=== PATIENT | female | born 1930 | race Caucasian/White ===

== ENCOUNTER 2020-08-13 13:38 | Inpatient (IN) ==
[2020-08-13] MEDS: Cyanocobalamin (B-12) 1,000 MCG/ML VIAL IM SCH ×2 (21:57→22:07)
[2020-08-13] MEDS: hydrALAZINE 25 MG TABLET PO SCH (21:57)
[2020-08-13] MEDS: cloNIDine HCL 0.1 MG TABLET PO SCH (21:58)
[2020-08-13] MEDS: Cholecalciferol (D-3) 1,000 UNIT (25MCG) TABLET PO SCH (21:58)
[2020-08-13] MEDS: Melatonin 3 MG TABLET PO PRN (21:59)
[2020-08-13] MEDS: paricalcitoL 1 MCG CAPSULE PO SCH (22:06)
[2020-08-14] MEDS: Cyanocobalamin (B-12) 1,000 MCG/ML VIAL IM SCH ×2 (00:30→09:37)
[2020-08-14 07:01] LABS: Calcium 9.5 mg/dL (8.6-10.3); Potassium 3.8 mEq/L (3.5-5.1)
[2020-08-14] MEDS ORDERED: amLODIPine 5 MG TABLET PO SCH (09:00)
[2020-08-14] MEDS ORDERED: Denosumab 60 MG/ML SYRINGE SQ SCH (09:00)
[2020-08-14] MEDS: paricalcitoL 1 MCG CAPSULE PO SCH ×2 (09:35→20:59)
[2020-08-14] MEDS: predniSONE 20 MG TABLET PO SCH (09:35)
[2020-08-14] MEDS: hydrALAZINE 25 MG TABLET PO SCH ×3 (09:35→20:59)
[2020-08-14] MEDS: Cholecalciferol (D-3) 1,000 UNIT (25MCG) TABLET PO SCH ×2 (09:35→21:00)
[2020-08-14] MEDS: Pyridoxine (B-6) 50 MG TABLET PO SCH (09:36)
[2020-08-14] MEDS: Folic Acid 1 MG TABLET PO SCH (09:36)
[2020-08-14] MEDS: cloNIDine HCL 0.1 MG TABLET PO SCH (09:36)
[2020-08-14] MEDS ORDERED: Sennosides/Docusate Sodium TABLET PO PRN (15:55)
[2020-08-14] MEDS ORDERED: amLODIPine 5 MG TABLET PO ONE (16:15)
[2020-08-14] MEDS: *HR* Heparin 5,000 UNIT/ML VIAL SQ SCH (16:59)
[2020-08-14] MEDS: Melatonin 3 MG TABLET PO PRN (21:00)
[2020-08-15] MEDS: hydrALAZINE 25 MG TABLET PO SCH ×3 (09:20→20:35)
[2020-08-15] MEDS: predniSONE 20 MG TABLET PO SCH (09:21)
[2020-08-15] MEDS: amLODIPine 5 MG TABLET PO SCH (09:21)
[2020-08-15] MEDS: paricalcitoL 1 MCG CAPSULE PO SCH ×2 (09:21→20:36)
[2020-08-15] MEDS: Folic Acid 1 MG TABLET PO SCH (09:22)
[2020-08-15] MEDS: Cholecalciferol (D-3) 1,000 UNIT (25MCG) TABLET PO SCH ×2 (09:22→20:36)
[2020-08-15] MEDS: Pyridoxine (B-6) 50 MG TABLET PO SCH (09:22)
[2020-08-15] MEDS: *HR* Heparin 5,000 UNIT/ML VIAL SQ SCH ×2 (09:23→17:22)
[2020-08-15] MEDS: Melatonin 3 MG TABLET PO PRN (20:37)
[2020-08-16] MEDS: *HR* Heparin 5,000 UNIT/ML VIAL SQ SCH ×2 (05:56→17:28)
[2020-08-16] MEDS: paricalcitoL 1 MCG CAPSULE PO SCH ×2 (09:14→21:30)
[2020-08-16] MEDS: Pyridoxine (B-6) 50 MG TABLET PO SCH (09:14)
[2020-08-16] MEDS: Folic Acid 1 MG TABLET PO SCH (09:15)
[2020-08-16] MEDS: hydrALAZINE 25 MG TABLET PO SCH ×3 (09:15→21:30)
[2020-08-16] MEDS: predniSONE 20 MG TABLET PO SCH (09:15)
[2020-08-16] MEDS: amLODIPine 5 MG TABLET PO SCH (09:15)
[2020-08-16] MEDS: Cholecalciferol (D-3) 1,000 UNIT (25MCG) TABLET PO SCH ×2 (09:15→21:30)
[2020-08-16] MEDS: Melatonin 3 MG TABLET PO PRN (21:30)
[2020-08-17] MEDS ORDERED: *HR* Labetalol 20 MG/4 ML SYRINGE IVP ONE (00:52)
[2020-08-17] MEDS ORDERED: hydrALAZINE 25 MG TABLET PO ONE (01:16)
[2020-08-17] MEDS: *HR* Heparin 5,000 UNIT/ML VIAL SQ SCH ×2 (07:06→18:31)
[2020-08-17 08:04] LABS: Albumin 3.4 g/dL (3.5-5.7); Albumin/Globulin Ratio 0.9 (1.1-2.2); Bilirubin,Total 0.5 mg/dL (0.3-1.0); Potassium 3.7 mEq/L (3.5-5.1); Total Protein 7.4 g/dL (6.4-8.9)
[2020-08-17 08:31] LABS: VBG Ionized Calcium 1.79 mmol/L (1.15-1.35)
[2020-08-17] MEDS: Folic Acid 1 MG TABLET PO SCH (10:05)
[2020-08-17] MEDS: paricalcitoL 1 MCG CAPSULE PO SCH ×2 (10:05→21:44)
[2020-08-17] MEDS: hydrALAZINE 25 MG TABLET PO SCH ×4 (10:05→21:44)
[2020-08-17] MEDS: Cholecalciferol (D-3) 1,000 UNIT (25MCG) TABLET PO SCH ×2 (10:05→21:44)
[2020-08-17] MEDS: amLODIPine 5 MG TABLET PO SCH (10:06)
[2020-08-17] MEDS: predniSONE 20 MG TABLET PO SCH (10:06)
[2020-08-17] MEDS: Pyridoxine (B-6) 50 MG TABLET PO SCH (10:06)
[2020-08-17] MEDS: Isosorbide MONOnitrate (24 HR) 30 MG TAB.ER.24H PO SCH (14:23)
[2020-08-17] MEDS: Ringers Solution, Lactated 1,000 ML IVC SCH (14:24)
[2020-08-17] MEDS: Metoprolol 100 MG TABLET PO SCH (21:45)
[2020-08-18] MEDS: Ringers Solution, Lactated 1,000 ML IVC SCH ×3 (00:08→17:20)
[2020-08-18] MEDS: *HR* Heparin 5,000 UNIT/ML VIAL SQ SCH ×2 (05:33→17:24)
[2020-08-18] MEDS: paricalcitoL 1 MCG CAPSULE PO SCH ×3 (08:40→20:22)
[2020-08-18] MEDS: hydrALAZINE 25 MG TABLET PO SCH ×5 (08:40→20:22)
[2020-08-18] MEDS: predniSONE 20 MG TABLET PO SCH ×2 (08:40→09:22)
[2020-08-18] MEDS: Cholecalciferol (D-3) 1,000 UNIT (25MCG) TABLET PO SCH ×3 (08:40→20:23)
[2020-08-18] MEDS: Isosorbide MONOnitrate (24 HR) 30 MG TAB.ER.24H PO SCH ×2 (08:40→09:21)
[2020-08-18] MEDS: Folic Acid 1 MG TABLET PO SCH ×2 (08:41→09:21)
[2020-08-18] MEDS: Pyridoxine (B-6) 50 MG TABLET PO SCH ×2 (08:41→09:22)
[2020-08-18] MEDS: Metoprolol 100 MG TABLET PO SCH ×3 (08:41→20:22)
[2020-08-18] MEDS: amLODIPine 5 MG TABLET PO SCH ×2 (08:41→09:22)
[2020-08-18] MEDS ORDERED: levoFLOXacin 750 MG TABLET PO ONE (16:19)
[2020-08-18 17:24] LABS: Basophils # 0.1 K/mcL (0.0-0.2); Basophils % 0.6 %; Hematocrit 30.9 % (35.3-44.9); Hemoglobin 9.7 g/dL (11.5-15.4); Immature Granulocytes % 6.3 % (0-4); Lymphocytes % 12.8 %; Mean Corpuscular HGB Conc 31.4 g/dL (31.6-35.5); Mean Corpuscular Hemoglobin 21.6 pg (28.0-33.3); Mean Corpuscular Volume 68.7 fL (83.0-100.0); Mean Platelet Volume 8.4 fL (9.4-12.4); Monocytes # 1.7 K/mcL (0.0-1.3); Monocytes % 7.3 %; Neutrophils # 16.9 K/mcL (1.6-8.9); Nucleated Red Blood Cells 10.7 /100 WBC (0); Platelet Count 390 K/mcL (140-400); Red Cell Distribution Width 22.5 % (11.5-14.5); White Blood Count 23.1 K/mcL (4.3-11.1)
[2020-08-18 17:48] LABS: Albumin 3.2 g/dL (3.5-5.7); Albumin/Globulin Ratio 0.9 (1.1-2.2); Bilirubin,Total 0.6 mg/dL (0.3-1.0); Calcium 11.8 mg/dL (8.6-10.3); Globulin 3.6 g/dL (2.4-3.5); Potassium 4.2 mEq/L (3.5-5.1); Total Protein 6.8 g/dL (6.4-8.9)
[2020-08-18 18:56] LABS: Anisocytosis 1+ (Not Present); Microcytosis Present (Not Present); Platelet Estimate Normal (Normal)
[2020-08-18 18:57] LABS: Polychromasia 1+ (Not Present)
[2020-08-18] MEDS: Melatonin 3 MG TABLET PO PRN (20:22)
[2020-08-19] MEDS: *HR* Heparin 5,000 UNIT/ML VIAL SQ SCH ×2 (05:19→17:44)
[2020-08-19] MEDS: Ringers Solution, Lactated 1,000 ML IVC SCH ×3 (06:10→17:55)
[2020-08-19] MEDS ORDERED: *HR* Labetalol 20 MG/4 ML SYRINGE IVP ONE ×2 (09:05→10:30)
[2020-08-19] MEDS: hydrALAZINE 25 MG TABLET PO SCH (10:37)
[2020-08-19] MEDS: Folic Acid 1 MG TABLET PO SCH (10:37)
[2020-08-19] MEDS: Metoprolol 100 MG TABLET PO SCH (10:38)
[2020-08-19] MEDS: amLODIPine 5 MG TABLET PO SCH (10:38)
[2020-08-19] MEDS: Cholecalciferol (D-3) 1,000 UNIT (25MCG) TABLET PO SCH (10:38)
[2020-08-19] MEDS: Pyridoxine (B-6) 50 MG TABLET PO SCH (10:38)
[2020-08-19] MEDS: Isosorbide MONOnitrate (24 HR) 30 MG TAB.ER.24H PO SCH (10:38)
[2020-08-19] MEDS: paricalcitoL 1 MCG CAPSULE PO SCH (10:39)
[2020-08-19] MEDS: Nitroglycerin 1 INCH/GM PACKET TP SCH (12:15)
[2020-08-19 12:20] LABS: Hemoglobin 10.1 g/dL (11.5-15.4); Mean Corpuscular HGB Conc 30.6 g/dL (31.6-35.5); Mean Corpuscular Hemoglobin 21.2 pg (28.0-33.3); Mean Corpuscular Volume 69.3 fL (83.0-100.0); Mean Platelet Volume 8.8 fL (9.4-12.4); Nucleated Red Blood Cells 10.5 /100 WBC (0); Platelet Count 372 K/mcL (140-400); Red Blood Count 4.76 M/mcL (3.82-4.97); White Blood Count 24.4 K/mcL (4.3-11.1)
[2020-08-19 12:37] LABS: Albumin 3.3 g/dL (3.5-5.7); Albumin/Globulin Ratio 0.9 (1.1-2.2); Bilirubin,Total 0.7 mg/dL (0.3-1.0); Calcium 11.3 mg/dL (8.6-10.3); Globulin 3.5 g/dL (2.4-3.5); Potassium 4.4 mEq/L (3.5-5.1); Total Protein 6.8 g/dL (6.4-8.9)
[2020-08-19 12:53] LABS: Thyroid Stimulating Hormone 5.369 mcIU/mL (0.340-5.600)
[2020-08-19 14:45] LABS: Bilirubin,Urine Negative (Negative); Blood,Urine Negative (Negative); Clarity,Urine Clear (Clear); Color,Urine Yellow (Yellow); Glucose,Urine (UA) Normal (Normal); Ketones,Urine Negative (Negative); Leukocyte Esterase,Urine Negative (Negative); Nitrite,Urine Negative (Negative); PH,Urine 6.5 pH Units (5.0-8.0); Protein,Urine >=300 mg/dL (Neg-Trace); Urobilinogen,Urine Normal (Normal)
[2020-08-19 14:56] LABS: Hyaline Casts,Urine Few per lpf (None Seen); RBC,Urine 0-3 per hpf (0-3); Renal Epithelial Cells,Urine Few per hpf (None-Few); Squamous Epithelial Cell,Urine Few per hpf (None-Few)
[2020-08-19 14:59] LABS: Anisocytosis 1+ (Not Present); Lymphocytes # 1.5 K/mcL (0.6-4.6); Microcytosis Present (Not Present); Monocytes # 2.4 K/mcL (0.0-1.3); Neutrophils # 19.5 K/mcL (1.6-8.9); Platelet Estimate Normal (Normal); Polychromasia 1+ (Not Present)
[2020-08-19] MEDS: levoFLOXacin 500 MG/100 ML 500 MG/100 ML BAG IVPB SCH (16:50)
[2020-08-19] MEDS: *HR* Metoprolol 5 MG/5 ML VIAL IVP SCH (17:46)
[2020-08-19 18:16] LABS: Triiodothyronine (T3) Free 2.01 pg/mL (2.50-3.90)
[2020-08-20] MEDS: Cholecalciferol (D-3) 1,000 UNIT (25MCG) TABLET PO SCH ×2 (00:50→08:37)
[2020-08-20] MEDS: paricalcitoL 1 MCG CAPSULE PO SCH ×2 (00:50→08:37)
[2020-08-20] MEDS: *HR* Metoprolol 5 MG/5 ML VIAL IVP SCH ×4 (01:08→18:32)
[2020-08-20] MEDS: Ringers Solution, Lactated 1,000 ML IVC SCH ×2 (02:29→19:27)
[2020-08-20] MEDS: Nitroglycerin 1 INCH/GM PACKET TP SCH ×2 (05:55→12:33)
[2020-08-20] MEDS: *HR* Heparin 5,000 UNIT/ML VIAL SQ SCH (05:55)
[2020-08-20] MEDS ORDERED: *HR* LORazepam 2 MG/ML VIAL IVP ONE (08:19)
[2020-08-20] MEDS: Folic Acid 1 MG TABLET PO SCH (08:36)
[2020-08-20] MEDS: amLODIPine 5 MG TABLET PO SCH (08:36)
[2020-08-20] MEDS: Pyridoxine (B-6) 50 MG TABLET PO SCH (08:37)
[2020-08-20 09:47] LABS: Hematocrit 31.3 % (35.3-44.9); Hemoglobin 9.6 g/dL (11.5-15.4); Mean Corpuscular HGB Conc 30.7 g/dL (31.6-35.5); Mean Corpuscular Hemoglobin 21.5 pg (28.0-33.3); Mean Corpuscular Volume 70.2 fL (83.0-100.0); Mean Platelet Volume 8.7 fL (9.4-12.4); Nucleated Red Blood Cells 14.8 /100 WBC (0); Platelet Count 287 K/mcL (140-400); Red Blood Count 4.46 M/mcL (3.82-4.97); Red Cell Distribution Width 23.6 % (11.5-14.5); White Blood Count 18.2 K/mcL (4.3-11.1)
[2020-08-20 10:01] LABS: Bilirubin,Total 0.7 mg/dL (0.3-1.0); Calcium 10.5 mg/dL (8.6-10.3)
[2020-08-20 10:05] LABS: Anisocytosis 1+ (Not Present); Lymphocytes # 2.2 K/mcL (0.6-4.6); Monocytes # 0.4 K/mcL (0.0-1.3); Neutrophils # 14.6 K/mcL (1.6-8.9); Polychromasia 1+ (Not Present); Toxic Granulation Present (Not Present)
[2020-08-20 10:06] LABS: Hypochromasia Present (Not Present); Rouleaux Present (Not Present)
[2020-08-20] MEDS ORDERED: *HR* LORazepam 2 MG/ML VIAL IVP PRN (11:05)
[2020-08-20] MEDS: Morphine Sulfate 2 MG/ML SYRINGE IVP PRN ×2 (12:33→18:33)
[2020-08-20] MEDS ORDERED: Ondansetron 4 MG/2 ML VIAL IVP PRN (16:48)
[2020-08-20] MEDS ORDERED: levoFLOXacin 500 MG TABLET PO SCH (17:00)
[2020-08-20] MEDS ORDERED: levoFLOXacin 500 MG/100 ML 500 MG/100 ML BAG IVPB SCH (17:00)
[2020-08-21] MEDS: *HR* Metoprolol 5 MG/5 ML VIAL IVP SCH ×4 (00:01→10:23)
[2020-08-21] MEDS: Morphine Sulfate 2 MG/ML SYRINGE IVP PRN ×2 (00:08→04:31)
[2020-08-21] MEDS: Nitroglycerin 1 INCH/GM PACKET TP SCH (06:34)
[2020-08-21] MEDS: Pyridoxine (B-6) 50 MG TABLET PO SCH (10:23)
[2020-08-21] MEDS: Isosorbide MONOnitrate (24 HR) 30 MG TAB.ER.24H PO SCH (12:43)
[2020-08-21] MEDS: Metoprolol 100 MG TABLET PO SCH ×2 (12:44→21:59)
[2020-08-21] MEDS: amLODIPine 5 MG TABLET PO SCH (12:44)
[2020-08-21] MEDS: hydrALAZINE 25 MG TABLET PO SCH ×2 (12:44→17:49)
[2020-08-21] MEDS: levoFLOXacin 500 MG/100 ML 500 MG/100 ML BAG IVPB SCH (17:49)
[2020-08-21] MEDS: Melatonin 3 MG TABLET PO PRN (21:59)
[2020-08-21] MEDS: Sennosides/Docusate Sodium TABLET PO SCH (21:59)
[2020-08-22] MEDS: hydrALAZINE 25 MG TABLET PO SCH ×5 (00:32→23:57)
[2020-08-22] MEDS: Pyridoxine (B-6) 50 MG TABLET PO SCH (08:38)
[2020-08-22] MEDS: Isosorbide MONOnitrate (24 HR) 30 MG TAB.ER.24H PO SCH (08:38)
[2020-08-22] MEDS: Metoprolol 100 MG TABLET PO SCH ×2 (08:39→20:39)
[2020-08-22] MEDS: Sennosides/Docusate Sodium TABLET PO SCH ×2 (08:40→20:39)
[2020-08-22] MEDS: amLODIPine 5 MG TABLET PO SCH (08:40)
[2020-08-22] MEDS ORDERED: cloNIDine HCL 0.1 MG TABLET PO SCH (09:00)
[2020-08-22] MEDS ORDERED: Cyanocobalamin (B-12) 1,000 MCG/ML VIAL IM SCH (09:00)
[2020-08-22] MEDS ORDERED: polyethylene glycoL 3350 17 GM POWD.PACK PO ONE (11:08)
[2020-08-22] MEDS: Melatonin 3 MG TABLET PO PRN (20:38)
[2020-08-23] MEDS: hydrALAZINE 25 MG TABLET PO SCH ×3 (05:43→16:54)
[2020-08-23] MEDS: Isosorbide MONOnitrate (24 HR) 30 MG TAB.ER.24H PO SCH (08:59)
[2020-08-23] MEDS: amLODIPine 5 MG TABLET PO SCH (08:59)
[2020-08-23] MEDS: Metoprolol 100 MG TABLET PO SCH ×2 (09:00→21:14)
[2020-08-23] MEDS: Pyridoxine (B-6) 50 MG TABLET PO SCH (09:00)
[2020-08-23] MEDS: Sennosides/Docusate Sodium TABLET PO SCH ×2 (09:00→21:13)
[2020-08-23] MEDS: levoFLOXacin 500 MG TABLET PO SCH (16:54)
[2020-08-23] MEDS: *HR* Heparin 5,000 UNIT/ML VIAL SQ SCH (21:14)
[2020-08-23] MEDS: Melatonin 3 MG TABLET PO PRN (21:14)
[2020-08-24] MEDS: hydrALAZINE 25 MG TABLET PO SCH ×5 (00:09→23:31)
[2020-08-24] MEDS: *HR* Heparin 5,000 UNIT/ML VIAL SQ SCH ×3 (05:35→21:21)
[2020-08-24] MEDS: Sennosides/Docusate Sodium TABLET PO SCH ×2 (09:02→21:21)
[2020-08-24] MEDS: Pyridoxine (B-6) 50 MG TABLET PO SCH (09:02)
[2020-08-24] MEDS: Isosorbide MONOnitrate (24 HR) 30 MG TAB.ER.24H PO SCH (09:02)
[2020-08-24] MEDS: amLODIPine 5 MG TABLET PO SCH (09:02)
[2020-08-24] MEDS: Metoprolol 100 MG TABLET PO SCH (09:03)
[2020-08-24] MEDS: Melatonin 3 MG TABLET PO PRN (21:21)
[2020-08-25] MEDS: *HR* Heparin 5,000 UNIT/ML VIAL SQ SCH ×3 (05:46→20:57)
[2020-08-25] MEDS: amLODIPine 5 MG TABLET PO SCH (09:55)
[2020-08-25] MEDS: Sennosides/Docusate Sodium TABLET PO SCH ×2 (09:55→20:49)
[2020-08-25] MEDS: Pyridoxine (B-6) 50 MG TABLET PO SCH (09:55)
[2020-08-25] MEDS: hydrALAZINE 25 MG TABLET PO SCH ×3 (09:55→23:47)
[2020-08-25] MEDS: Isosorbide MONOnitrate (24 HR) 30 MG TAB.ER.24H PO SCH (09:55)
[2020-08-25] MEDS: levoFLOXacin 500 MG TABLET PO SCH (15:23)
[2020-08-25] MEDS: Melatonin 3 MG TABLET PO PRN (20:49)
[2020-08-26] MEDS: *HR* Heparin 5,000 UNIT/ML VIAL SQ SCH ×3 (06:30→20:34)
[2020-08-26] MEDS: hydrALAZINE 25 MG TABLET PO SCH ×2 (10:19→15:01)
[2020-08-26] MEDS: Sennosides/Docusate Sodium TABLET PO SCH ×2 (10:19→20:34)
[2020-08-26] MEDS: Pyridoxine (B-6) 50 MG TABLET PO SCH (10:20)
[2020-08-26] MEDS: amLODIPine 5 MG TABLET PO SCH (10:20)
[2020-08-26] MEDS: Megestrol Acetate 400 MG/10 ML UDC PO SCH (10:20)
[2020-08-26] MEDS: Isosorbide MONOnitrate (24 HR) 30 MG TAB.ER.24H PO SCH (10:20)
[2020-08-27] MEDS: hydrALAZINE 25 MG TABLET PO SCH ×2 (00:17→08:47)
[2020-08-27] MEDS: *HR* Heparin 5,000 UNIT/ML VIAL SQ SCH (05:28)
[2020-08-27 07:22] VITALS: BP 155/68
[2020-08-27] MEDS: amLODIPine 5 MG TABLET PO SCH (08:47)
[2020-08-27] MEDS: Sennosides/Docusate Sodium TABLET PO SCH (08:47)
[2020-08-27] MEDS: Isosorbide MONOnitrate (24 HR) 30 MG TAB.ER.24H PO SCH (08:47)
[2020-08-27] MEDS: Megestrol Acetate 400 MG/10 ML UDC PO SCH (08:48)
[2020-08-27] MEDS: Pyridoxine (B-6) 50 MG TABLET PO SCH (08:48)
[2020-09-04] MEDS ORDERED: Cyanocobalamin (B-12) 1,000 MCG/ML VIAL IM ONE (09:00)
== END 2020-08-27 15:05 | DRG 558 ==
LOC: INPPIK 19:35
PROVIDERS: ADMIT Family Medicine; ATTEND Family Medicine